=== PATIENT | female | born 1990 | race Caucasian/White ===

== ENCOUNTER 2018-05-17 23:02 | Emergency (ER) | payer BC, SELFPAY ==
[2018-05-17 23:31] LABS: #Basophils 0.1 thou/uL (0.0-0.2); #Eosinphils 0.2 thou/uL (0.0-0.7); #Lymphocytes 3.5 thou/uL (1.20-3.40); #Monocytes 0.7 thou/uL (0.11-0.59); #Neutrophils 5.4 thou/uL (1.40-6.50); %Basophils 0.9 % (0.0-1.0); %Eosinophils 1.7 % (0.0-10.0); %Lymphocytes 35.5 % (21.0-51.0); %Neutrophils 54.9 % (42.0-75.0); Hemoglobin 13.6 g/dL (12.0-16.0); Mean Corpuscular HGB CONC 35.3 g/dL (32.0-36.0); Mean Corpuscular Hemoglobin 31.6 pg (27.0-31.0); Mean Corpuscular Volume 89.3 fL (78.0-98.0); Mean Platelet Volume 9.3 fL (7.4-10.4); Platelet Count 188 thou/uL (130-400); RBC Distribution Width 11.3 % (11.5-14.5); White Blood Cell (WBC) Count 9.8 thou/uL (4.8-10.8)
[2018-05-17 23:52] LABS: ALT (SGPT) 25 U/L (8-55); AST (SGOT) 17 U/L (5-34); Albumin 4.1 g/dL (3.5-5.0); Alkaline Phosphatase 67 U/L (40-150); Anion Gap 13 mmol/L (10-20); BUN (Urea Nitrogen) 13 mg/dL (7.0-18.7); Bilirubin, Total 0.2 mg/dL (0.2-1.2); Calc. Creatinine Clearance 0 mL/min (70-130); Calcium 9.1 mg/dL (7.8-10.44); Carbon Dioxide 24 mmol/L (22-29); Chloride 106 mmol/L (98-107); Estimated GFR-MDRD 80; Globulin 3.1 g/dL (2.4-3.5); Glucose 102 mg/dL (70-105); Lipase 47 U/L (8-78); Potassium 3.7 mmol/L (3.5-5.1); Protein, Total 7.2 g/dL (6.0-8.3); Sodium 139 mmol/L (136-145)
[2018-05-18 00:50] LABS: Bilirubin Negative (Negative); Blood, Urine Negative (Negative); Clarity CLEAR (Clear); Glucose, Urine (Dipstick) Negative (Negative); Leukocyte Moderate (Negative); Nitrite Negative (Negative); Protein, Urine (Dipstick) Negative (Neg-Trace); Specific Gravity, Urine 1.009 (1.002-1.036); Urobilinogen 0.2 mg/dL (0.2-1.0)
[2018-05-18 00:53] LABS: Bacteria/HPF Rare-Few HPF (None Seen); Hyaline Casts/LPF 0-3 HYALINE CAST LPF (0-3 Hyaline); RBC/HPF 0-3 HPF (0-3)
[2018-05-18 00:54] LABS: Pregnancy Test - Urine (BHCG) Negative (Negative); Specific Gravity 1.009 (1.002-1.036)
[2018-05-18 00:55] LABS: Pregu Control Background? CLEAR/WHITE (CLR/WHITE); Pregu Control Bar Appear? YES (CONTROL BAR)
[2018-05-18] MEDS ORDERED: Ketorolac Tromethamine 30 MG/ML VIAL ONE (04:22)
[2018-05-18] MEDS ORDERED: ISOVUE-370 76%-LOCM 1 ML ONE (15:01)
--- NOTE | 2018-05-18 15:20 | CT ---
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 Associated SX of: Vomiting (x2 times). Pt denies: Any vaginal bleeding or discharge, diarrhea, blood in stool, hematuria, dysuria. Surgical HX of . TECHNIQUE: Axial computed tomography images of the abdomen and pelvis with intravenous contrast. Coronal reformatted images were created and reviewed. COMPARISON: No relevant prior studies available. FINDINGS: Lung bases: No acute findings. No mass. No consolidation. ABDOMEN: Liver: Fatty liver. No acute findings. No mass. Gallbladder and bile ducts: No calcified stones. No ductal dilation. Pancreas: No ductal dilation. No mass. Spleen: No acute findings. No mass. Adrenals: No mass. Kidneys and ureters: No acute findings. No hydronephrosis. No solid mass. Stomach and bowel: Fluid-filled and mildly distended small bowel loops, nonspecific and can be seen w ith enteritis. No evidence of bowel obstruction. Diverticulosis. Fecal colonic loading. PELVIS: Appendix: No findings to suggest acute appendicitis. Bladder: No acute findings. No mass. Reproductive: Enlarged left ovary/probable involuted corpus luteum. ABDOMEN and PELVIS: Intraperitoneal space: Mild ascites within the abdomen and pelvis. No free air. Bones/joints: No acute fracture. Soft tissues: No acute findings. Vasculature: No acute findings. No abdominal aortic aneurysm. Lymph nodes: No lymphadenopathy. IMPRESSION: Mild ascites. Enlarged left ovary/probable involuted corpus luteum; recommend further evaluation with pelvic ultrasound. Possible enteritis. Thank you for allowing us to participate in the care of your patient. Dictated and Authenticated by: Rivas Cleaning MD 05/18/2018 2:34 AM Central Time ([place] & [place]) FINAL REPORT CT ABDOMEN AND PELVIS WITH IV CONTRAST: I agree with the preliminary report given by Dr. Cleaning of [facility] POS: [facility]
--- NOTE | 2018-05-18 15:36 | ULT ---
PRELIMINARY REPORT/[facility]/EMERGENTY AFTER-HOURS PROCEDURE US Pelvis Complete, Transabdominal US Duplex Arterial/Venous of the Pelvis, Complete CLINICAL HISTORY: 27 years old, female; Pain; Other: Llq TECHNIQUE: Real-time transabdominal pelvic ultrasound (complete) with image documentation. Real-time duplex ultr asound scan of the arterial and venous flow of the pelvis with color Doppler flow and spectral waveform analysis. COMPARISON: No relevant prior studies available. FINDINGS: Transabdominal pelvic ultrasound was performed. Duplex ultrasound scan with color Doppler flow and sp ectral waveform analysis was also performed for evaluation of pelvic and ovarian blood flow and torsi on. Uterus/cervix: No acute findings. Normal endometrial stripe thickness. No myometrial mass. Right ovary: Right ovarian dominant follicle. No acute findings. No mass. Normal blood flow. No evide nce of torsion. Left ovary: Left ovarian involuted probable corpus luteal cyst measuring up to 4.1 cm. Otherwise no a cute findings. Normal blood flow. No evidence of torsion. Free fluid: No significant free fluid. IMPRESSION: No acute findings. Left ovarian involuted probable corpus luteal cyst. Thank you for allowing us to participate in the care of your patient. Dictated and Authenticated by: Rivas Cleaning MD 05/18/2018 4:32 AM Central Time ([place] & [place]) FINAL REPORT PELVIC ULTRASOUND WITH DOPPLER: I agree with the preliminary report given by Dr. Cleaning of [facility]. POS: [facility]
== END 2018-05-18 05:35 | disposition home or self-care (01) ==
LOC: ERS 23:02
DX: N83.202 Unspecified ovarian cyst, left side (principal)
CPT/HCPCS: 36415; 74177; 76856; 80053; 81003; 81015; 81025; 83690; 85025; 93976; 96374; 96376; J1885; J2270